=== PATIENT | male | born 2005 | race Caucasian/White ===

== ENCOUNTER 2025-06-10 13:35 | Emergency (ER) | payer OTHER, SELFPAY ==
[2025-06-10 13:35] VITALS: BP 148/76; PULSE 109; RESP 18; TEMP 36.7; O2SAT 99; BMI 23.5
[2025-06-10 13:38] VITALS: TEMP 37.2
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
[2025-06-10 15:28] VITALS: BP 136/62; PULSE 92; RESP 16; TEMP 36.8; O2SAT 99
== END 2025-06-10 15:30 | disposition home or self-care (01) ==
PROVIDERS: Emergency Provider Emergency Medicine; PCP Family Medicine; Visit Provider Emergency Medicine
DX: S06.0X1A Concussion with loss of consciousness of 30 minutes or less, initial encounter (principal); S01.01XA Laceration without foreign body of scalp, initial encounter; W50.0XXA Accidental hit or strike by another person, initial encounter; Y93.64 Activity, baseball
CPT/HCPCS: 70450; 72125; 99285